=== PATIENT | male | born 1965 | race Caucasian/White ===

== ENCOUNTER 2019-10-23 20:47 | Emergency (ER) | payer SELFPAY ==
[~2019-10-23] VITALS: Ht 165.1 cm; Wt 77.1 kg
--- NOTE | 2019-10-23 20:59 | NUR ---
Pt screened for covid-19, pt c/o cough, pt sent to medical tent, pt wearing mask. Appropriate PPE worn during encounter.
[2019-10-23 21:00] VITALS: BP 162/94
--- NOTE | 2019-10-23 21:00 | NUR ---
54/M presents ambulatory to ED, c/o headache x6 hrs and mild cough and sore throat x3hrs. Pt denies fever/chills, pt afebrile. Pt denies CP/SOB. Pt awake and alert, skin normal color warm and dry, rr even and unlabored. No neuro deficits. Denies med hx
--- NOTE | 2019-10-23 21:15 | NUR ---
[facility] in [facility] - 10/23/19 at 2221 by RAQUEL Spoke with house sup. Waiting for station cashier nurse to come in before pt transferred to floor.
== END 2019-10-23 22:20 | disposition home or self-care (01) ==
LOC: EEVIPCON 20:47 → MED 20:47
DX: R05 Cough (principal); Z20.828 Contact with and (suspected) exposure to other viral communicable diseases
CPT/HCPCS: 99283; C9803; U0003; 36415